=== PATIENT | female | born 1950 | race Caucasian/White ===

== ENCOUNTER 2016-04-29 10:00 | Day surgery (SDC) | payer MEDICARE, MEDICAID ==
[~2016-04-29] VITALS: Ht 170.2 cm; Wt 152.0 kg
[~2016-04-29 10:00] MED LIST: CELEBREX200 MG PO; COMBIVENT RESPIM4 GM INH; HUMULIN R100 U/ML SC; HYDROCODONE-APA1 TAB PO; IBUPROFEN200 MG PO; K-TAB10 MEQ PO; LANTUS INSULIN10 ML SC; LASIX40 MG PO; SYMBICORT 16010.2 GM INH
[2016-04-29 11:35] LABS: HEMATOCRIT 49.8 % (36.0-48.0); HEMOGLOBIN 16.6 g/dL (12-16); MCH 32.2 pg (26.0-34.0); MCHC 33.3 g/dL (31.0-37.0); MCV 96.7 fL (80.0-100.0); MEAN PLATELET VOLUME 10.9 fL (7.4-10.4); RBC 5.15 10x6/uL (4.00-5.40); RDW 14.1 % (11.5-14.5); WBC 10.6 10x3/uL (4.8-10.8)
[2016-04-29 11:56] LABS: CARBON DIOXIDE 32.8 mmol/L (21.0-32.0); CREATININE - SERUM 1.2 mg/dL (0.6-1.3); POTASSIUM - SERUM 4.8 mmol/L (3.5-5.1)
[2016-04-29 12:11] VITALS: Ht 170.2 cm; Wt 152.0 kg
[2016-04-29] MEDS ORDERED: PERCOCET 10/3251 TA1 PO (14:07)
--- NOTE | 2016-04-29 15:13 | NUR ---
1505 ADA FL DIET SERVED
--- NOTE | 2016-05-13 18:23 | OP ---
PATIENT NAME: CARYN CHRISTINA MEDICAL RECORD: [id number] :50 LOCATION:D.OPS ADMISSION DATE: SURGEON: MAN ARITA MD DATE OF OPERATION: 04/29/2016 Orthopedic Surgery Operative Note PREOPERATIVE DIAGNOSIS: De Quervain stenosing tenosynovitis of the left wrist. POSTOPERATIVE DIAGNOSIS: De Quervain stenosing tenosynovitis of the left wrist. PROCEDURE: Release of De Quervain stenosing tenosynovitis. SURGEON: Man Arita MD. ANESTHESIA: General. INTRAOPERATIVE COMPLICATIONS: None. SUMMARY OF PATHOLOGIC FINDINGS: The patient had very tight wrist retinaculum consistent with the diagnosis of substantive synovitis. OPERATIVE SUMMARY IN DETAIL: After obtaining the appropriate preoperative consents as well as anesthetic consultation, evaluation and clearance, the patient was brought to the operating room and placed on the operating table in supine position. After the regional anesthesia was tested, the left upper extremity was prepped and draped in a routine sterile fashion with a tourniquet about the proximal aspect. The arm was elevated, exsanguinated and tourniquet was inflated to 250 mmHg. An incision was made just dorsal to the radial tuberosity taken down to the level of the extensor compartment, which was incised revealing the extensor pollicis longus and substantial amount of tendinitis and synovitis. Synovitis was gently teased away. The wound was irrigated and closed with 4-0 Prolene in running fashion. Sterile dressings were applied. Tourniquet was deflated. The patient was awakened, taken to recovery in stable condition. All final needle and sponge counts were correct. TRANSINT:[id number] Voice Confirmation ID: [id number] DOCUMENT ID: [id number] MAN ARITA MD at 1823 CC: [id number] DICTATION DATE: 04/29/16 1405 [employer] MANUFACTURING TECH: 04/29/16 1534 [facility] 04/29/16 [id number] [place] [address]
== END 2016-04-29 16:05 | disposition home or self-care (01) ==
LOC: D.OPS 10:00
PROVIDERS: Anesthesiology
DX: M65.4 Radial styloid tenosynovitis [de Quervain] (principal)

== ENCOUNTER 2016-04-30 06:53 | Inpatient (IN) | payer MEDICARE, MEDICAID ==
[~2016-04-30] VITALS: Ht 170.2 cm; Wt 143.3 kg
[~2016-04-30 06:53] MED LIST changes: +PERCOCET 10/3251 TA1 PO
[2016-04-30 09:00] LABS: BASOPHILS 0.3 % (0.0-2.0); EOSINOPHILS 1.8 % (0-7); HEMOGLOBIN 14.9 g/dL (12-16); IMMATURE GRANULOCYTES 0.7 % (0-5); LYMPHOCYTES 11.3 % (15-50); MCH 31.5 pg (26.0-34.0); MCHC 32.4 g/dL (31.0-37.0); MCV 97.3 fL (80.0-100.0); MEAN PLATELET VOLUME 10.3 fL (7.4-10.4); MONOCYTES 10.8 % (2-11); NEUTROPHILS 75.1 % (40-80); PLATELET COUNT 145 10x3/uL (130-400); RBC 4.73 10x6/uL (4.00-5.40); RDW 14.3 % (11.5-14.5); WBC 8.9 10x3/uL (4.8-10.8)
[2016-04-30 09:09] LABS: ANION GAP 8.2 mmol/L (8-16); CALCIUM 9.3 mg/dL (8.5-10.1); CARBON DIOXIDE 32.2 mmol/L (21.0-32.0); POTASSIUM - SERUM 5.4 mmol/L (3.5-5.1)
--- NOTE | 2016-04-30 15:00 | NUR ---
RECD TO ROOM 2216 VIA CART FROM S/O ON 3L N/C SOME SOB NOTED AT PRESENT.IV CONT TO RTDH AT 75CC/HR/IVAC.LEFT ARM STILL NUMB FROM TENDON REPAIR ON YESTERDAY VIA DR.RUDDER SERRANO AND SLING IN PLACE FINGERS WARM AND DRY WITH GOOD CAP REFILL AT PRESENT.PLAN OF CARE GONE OVER WITH PT AND FAMILY DEMONSTRATES UNDERSTANDING.
[2016-04-30 15:20] LABS: ALBUMIN 3.3 g/dL (3.4-5.0); BILIRUBIN - DIRECT 0.16 mg/dL (0.00-0.30); BILIRUBIN - INDIRECT 0.26 mg/dL (0.00-1.00); BILIRUBIN - TOTAL 0.42 mg/dL (0.2-1.3); PROTEIN - SERUM 6.8 g/dL (6.4-8.2)
[2016-04-30 16:17] VITALS: BP 108/88; BP 126/66; BMI 52.6
--- NOTE | 2016-04-30 17:09 | NUR ---
SLEEPING QUIETLY AT PRESENT DENIES ANY NEEDS AT PRESENT FAMILY AT BEDSIDE AT PRESENT.IV CONT AT 75CC/HR/RT HAND SITE CLEAN AND DRY VOIDING FREELY ON BEDPAN AT PRESENT.
--- NOTE | 2016-04-30 17:30 | NUR ---
CONT MULTIPLE OLD SCABS OVER BODY AT PRESENT.
--- NOTE | 2016-04-30 19:32 | NUR ---
Patient received in bed, alert and oriented x 4, having difficulty getting positioned into a comfortable position. Patient is very obese, encouraged to participate with staff assist but became very irritable. Making gasping noises forced with her mouth open, Oxygen on @3L/min, lung sounds slightly diminished, no wheezing heard. HOB elevated, respirations adequate, color normal fleshtone, skin warm and dry. PIV #22 in back of right hand infusing NS @75ml/hr. MAGGIE tensor wrap on left wrist intact and secure, left arm sling on. No complaints of pain at this time, complaining that she wants a dooley catheter in. Educated to importance of participating in her treatment and staying as active as she can to promote optimal well being for returning home upon discharge.
--- NOTE | 2016-04-30 21:30 | NUR ---
BG check done = 360. Given 10 Units regular insulin per sliding scale and routine dose of Lantus 70 Units. Patient states that her BG usually runs in the low 100s but because she is in the hospital and "they shove medications at me my blood sugar always goes up." Assisted up to commode with two staff. Initially patient was oppositional and did not want to participate stating she needed a catheter as she could not help herself. Did stand with assist and take a few steps.
[2016-04-30 22:00] VITALS: BP 95/55
--- NOTE | 2016-05-01 00:58 | NUR ---
Given King 10-325mg one tab for complaints of pain 10/10 in her back and right hand. Patient's right hand slightly swollen, checked PIV site, unable to flush, no blood return. Turned off IV pump and reported same to Charge Nurse. Charge Nurse reassessed and also was unable to flush and get blood return. PIV removed, catheter tip intact, pressure held over site and gauze dressing applied.
--- NOTE | 2016-05-01 01:30 | NUR ---
Attempted x 1 to restart PIV, got flash but vein blew when attempting to thread cannula. Charge Nurse attempted x 2, unsuccessful. Called ICU to see if an RN there could attempt to restart PIV.
--- NOTE | 2016-05-01 04:02 | NUR ---
PIV restarted in underside of Right Forearm with #20, NS restarted @50ml/hr as per orders. Patient made aware of being NPO now at [address] scan with contrast in the morning, clarified with radiology that patient needs to be NPO for at least four hours prior to procedure. Patient is not happy but with explanation did accept same.
[2016-05-01 06:14] LABS: BASOPHILS 0 % (0.0-2.0); EOSINOPHILS 0 % (0-7); HEMATOCRIT 46.6 % (36.0-48.0); HEMOGLOBIN 14.9 g/dL (12-16); IMMATURE GRANULOCYTES 0.6 % (0-5); LYMPHOCYTES 3.7 % (15-50); MCH 31.1 pg (26.0-34.0); MCV 97.3 fL (80.0-100.0); MEAN PLATELET VOLUME 10.8 fL (7.4-10.4); MONOCYTES 2.1 % (2-11); NEUTROPHILS 93.6 % (40-80); PLATELET COUNT 153 10x3/uL (130-400); RBC 4.79 10x6/uL (4.00-5.40); RDW 13.8 % (11.5-14.5); WBC 10.3 10x3/uL (4.8-10.8)
[2016-05-01 06:49] LABS: ANION GAP 11.3 mmol/L (8-16); CALCIUM 8.6 mg/dL (8.5-10.1); CARBON DIOXIDE 29.8 mmol/L (21.0-32.0); CREATININE - SERUM 1.1 mg/dL (0.6-1.3); POTASSIUM - SERUM 5.1 mmol/L (3.5-5.1)
--- NOTE | 2016-05-01 07:30 | NUR ---
REPORT RECEIVED FROM ADMINISTRATION PROFESSIONAL NURSE. CALL LIGHT IN REACH.
--- NOTE | 2016-05-01 07:55 | NUR ---
Patient has been up to bedside commode numerous times with two person assist, was up to bedside commode with one person assist the last two times and did pull self up in bed 8 inches on her own using her right arm and digging her heels into the bed, despite repeated complaints that she could not do so. PIV remains in place infusing NS, now @50mls/hr. Reminded several times she is NPO.
--- NOTE | 2016-05-01 08:16 | NUR ---
DES FROM CT SAID THAT PATIENT WANTED SOMETHING FOR PAIN BEFORE SHE WENT FOR HER CT SCAN. AFTER PLACING BOTH PILLS IN CUP, PATIENT STATES 2 IS TOO MANY FOR HER TO TAKE AT ONE TIME. I CALLED ARIANNA, NURSE NEWS AGENT IN ROOM TO WATCH ME WASTE IT IN THE SHARPS. TO CT VIA BED.
--- NOTE | 2016-05-01 08:40 | NUR ---
BACK IN ROOM. TRAY TAKEN TO PATIENT AND ALL BEVERAGES OPEN AND JELLY SPREAD ON TOAST FOR HER. COFFEE MADE FOR PATIENT.
--- NOTE | 2016-05-01 10:12 | NUR ---
ASSESSMENT COMPLETED. AM MEDS ADMINISTERED. PATIENT IS C/O NEEDING SOMEONE TO PULL HER STRAIGHT UP IN THE BED SO THAT SHE CAN TAKE HER MEDS. PATIENT SAYS THAT SHE CANNOT DO IT ON HER ALTHOUGH SHE RAISED UP IN BED ON HER OWN. CALL LIGHT IN REACH.
--- NOTE | 2016-05-01 12:05 | NUR ---
RESTING WITH EYES CLOSED. RESP EVEN AND UNLABORED. CALL LIGHT IN REACH.
[2016-05-01 13:07] VITALS: BP 183/83
[2016-05-01 13:31] VITALS: Ht 170.2 cm; Wt 143.3 kg
--- NOTE | 2016-05-01 14:45 | NUR ---
PATIENT RECIEVED NORCO FOR PAIN AT THIS TIME. STATED SHE ONLY WANTS ONE. THE OTHER IS WASTED. IV INTACT. BREATHING TREATMENT GOING AT THIS TIME. FAMILY AT BEDSIDE. CALL LIGHT WITHIN REACH.
[2016-05-01 15:50] VITALS: BP 128/56
--- NOTE | 2016-05-01 16:59 | NUR ---
Patient Name: CARYN CHRISTINA Admission Status: ER Accout number: [id number] Admission Date: 04-30-2016 : 1950 Admission Diagnosis: Attending: MARIELA Current LOS: 1 Anticipated DC Date: 05-03-2016 Planned Disposition: Home Primary Insurance: [facility] Discharge Planning Comments: CM MET WITH PATIENT REGARDING D/C NEEDS AND PLANS. PATIENT STATED SHE LIVES WITH HER SON AND DAUGHTER. PATIENT HAS NO STEPS OR STAIRS AT HER HOME. PAIENTS SON STATED HIS TRUCK IS TOO HIGH FOR HIS MOTHER TO GET IN FOR DISCHARGE. CM EXPLAINED THAT WE WOULD GET HER HOME IF HE COULD NOT. THAT WAS A BIG WORRY FOR THE PATIENT. PATIENT IS PARTIAL DEPENDENT WITH REC. HELP WITH HER BATH, DRESSING, AND MEDICATION MANAGEMENT. PATIENTS PCP IS DR. MOYA AND PHARMACY IS [facility] ON [address]. SHE IS CURRENT WITH [facility]. PATIENT HAS A WHEELCHAIR, WALKER, BS COMMODE, NEBULIZER, AND PORTABLE O2 AT HOME. PATIENT AND FAMILY THINK OXYGEN IS SUPPLIED BY [facility]. CM WILL CONTINUE TO FOLLOW PATIENT WITH DISCHARGE NEEDS AND PLANS. PCP DR[facility] [address] [facility]- [phone] MEGHAN (SON) [phone] Coin Box Inspector: Teresa Staton Is the patient Alert and Oriented? Yes 0 * How many steps to enter\exit or inside your home? 0 0 * PCP DR. MOYA 0 * Pharmacy [facility] [address] [facility] 0 * Preadmission Environment Home with Family 0 * ADLs Partial Dependent 0 * Partial ADLs (Assistance needed) Bathing Dressing Medication Management Toileting Transfers 0 * Equipment Bedside Commode Nebulizer Oxygen Walker Wheelchair 0 * Other Equipment PORTABLE O2 0 * List name and contact numbers for known caregivers / representatives who currently or will assist patient after discharge: MEGHAN (SON) [phone] 0 * Community resources currently utilized Home Health 0 * Please name any agencies selected above. [facility] 0 * Additional services required to return to the preadmission environment? Yes 0 * Can the patient safely return to the preadmission environment? Yes 0 * Has this patient been hospitalized within the prior 30 days at any hospital? No 0 Grand Total: 0
--- NOTE | 2016-05-01 18:40 | NUR ---
NO CHANGES IN INITIAL ASSESSMENT. CALL LIGHT IN REACH. WILL CONTINUE WITH PLAN OF CARE.
--- NOTE | 2016-05-01 20:00 | NUR ---
ASSESSMENT PER FLOWSHEET. IV PATENT RT FOREARM WITH NS AT 50CC'S/HR. SITE CLEAR. PT SITTING UPRIGHT IN BED TAKING UPDRAFT BREATHING TREATMENT. TELM. SHOWS SR.
--- NOTE | 2016-05-01 21:46 | NUR ---
C/O PAIN NORCO 10 TAB ONE PO GIVEN FOR PAIN CONTROL PER GYPSY JANG LPN. PVWS=285 HUMALOG INSULIN 20 UNITS GIVEN PER S/S.
[2016-05-01 22:12] VITALS: BP 112/58
--- NOTE | 2016-05-01 23:41 | NUR ---
RESTING AT THIS TIME SR UP X2 CALL LIGHT WITHIN REACH.
[2016-05-02 01:00] VITALS: BP 153/78
--- NOTE | 2016-05-02 02:03 | NUR ---
PT SITITNG UP IN BED WATCHING TV. REQUESTED PAIN MEDICATIONS. NEXT DOSE AVAILABLE AT 03:45. PT VERBALIZES UNDERSTANDING BUT WOULD LIKE TO SEE IF DOCTOR WILL CHANGE PAIN MEDICATION TO EVERY 4 HOURS. PT AGREES TO WAIT UNTIL MORNING ROUNDS RATHER THAN CALL DR IN THE MIDDLE OF THE NIGHT.
--- NOTE | 2016-05-02 03:00 | NUR ---
PT UP TO BEDSIDE COMMODE UNASSISTED. REPORTS THAT SHE CAUGHT IV TUBING ON BEDSIDE TABLE AND PULLED IT OUT. IV CATH REMOVED, COMPLETELY ITACT. PRESSURE HELD UNTIL BLEEDING STOPPED. WILL ATTEMPT TO RE-SITE AFTER PT IS BATHED AND BACK IN BED.
--- NOTE | 2016-05-02 04:38 | NUR ---
ATTEMPTED TO RE-SITE IV TWICE. BOTH ATTEMPTS WERE UNSUCCESSFUL. PT IS NOT RECEIVING MEDICATION THROUGH IV UNTIL LATER IN THE MORNING. WILL WAIT FOR VASCULAR ACCESS NURSE TO ATTEMPT WHEN SHE COMES IN THIS MORNING.
--- NOTE | 2016-05-02 05:27 | NUR ---
PT RESTING QUIETLY, REFUSES TO SLEEP WITH BI-PAP ON. NC IN USE INSTEAD. DENIES ANY NEEDS AT THIS TIME. CALL LIGHT IN REACH, BED IN LOWEST POSITON. WILL CONTINUE TO MONITOR.
[2016-05-02 06:42] LABS: BASOPHILS 0.1 % (0.0-2.0); EOSINOPHILS 0 % (0-7); HEMATOCRIT 45.8 % (36.0-48.0); HEMOGLOBIN 14.8 g/dL (12-16); IMMATURE GRANULOCYTES 0.3 % (0-5); LYMPHOCYTES 2.8 % (15-50); MCH 31.3 pg (26.0-34.0); MCHC 32.3 g/dL (31.0-37.0); MCV 96.8 fL (80.0-100.0); MEAN PLATELET VOLUME 10.9 fL (7.4-10.4); MONOCYTES 3.8 % (2-11); PLATELET COUNT 159 10x3/uL (130-400); RBC 4.73 10x6/uL (4.00-5.40); RDW 13.7 % (11.5-14.5); WBC 14.4 10x3/uL (4.8-10.8)
--- NOTE | 2016-05-02 06:44 | NUR ---
PT RESTING QUIETLY, DENIES ANY NEEDS AT THIS TIME. CALL LIGHT IN REACH, BED IN LOWEST POSITION.
[2016-05-02 06:47] LABS: CARBON DIOXIDE 33.2 mmol/L (21.0-32.0); CREATININE - SERUM 1.1 mg/dL (0.6-1.3); POTASSIUM - SERUM 5.2 mmol/L (3.5-5.1)
[2016-05-02 07:26] LABS: IMMUNOGLOBULIN A 384 mg/dL (87-352); IMMUNOGLOBULIN G 989 mg/dL (700-1600)
--- NOTE | 2016-05-02 07:30 | NUR ---
REPORT RECEIVED FROM SEAFOOD HARVESTER NURSE. CALL LIGHT IN REACH.
--- NOTE | 2016-05-02 08:00 | NUR ---
RESPIRATORY THERAPY IN ROOM DOING BREATHING TREATMENTS.
[2016-05-02 08:08] VITALS: BP 101/68
[2016-05-02 09:19] LABS: IMMUNOGLOBULIN E 1656 IU/mL (0-100)
--- NOTE | 2016-05-02 10:20 | NUR ---
ASSESSMENT COMPLETED. CALL LIGHT IN REACH. WILL CONTINUE WITH PLAN OF CARE.
--- NOTE | 2016-05-02 10:34 | NUR ---
PATIENT IN RIGHT LATERAL POSITION RESTING WITH EYES CLOSED. RESPIRATIONS EVEN AND UNLABORED. SIDE RAILS UP X2. BED IN LOW POSITION. CALL LIGHT IN REACH.
--- NOTE | 2016-05-02 12:21 | NUR ---
NUTRITION MONITORING & EVAL ADDED TEA AND COFFEE WITH EXTRA SWEETENER AND CREAMER TO PT DIET ORDER. RD FOLLOWING
--- NOTE | 2016-05-02 12:23 | NUR ---
CASSIECO PO WITH AM MEDS ADMINISTERED. FSBS 444. NOTIFIED DR. MEDEROS. STATED TO GIVE SLIDING SCALE. CALL LIGHT IN REACH.
[2016-05-02 12:31] VITALS: BP 90/59
--- NOTE | 2016-05-02 14:40 | NUR ---
FAMILY IN ROOM. NO NEEDS VOICED.
--- NOTE | 2016-05-02 15:30 | NUR ---
WATCHING TV. DENIES NEEDS. FAMILY IN ROOM. CALL LIGHT IN REACH.
--- NOTE | 2016-05-02 17:54 | NUR ---
FSBS 240. HUMALOG SUBQ TO RIGHT ARM. ERA BOSS. CALL LIGHT IN REACH.
--- NOTE | 2016-05-02 18:30 | NUR ---
NO CHANGES IN INITIAL ASSESSMENT. REFUSES SCDs. CALL LIGHT IN REACH. WILL CONTINUE WITH PLAN OF CARE.
--- NOTE | 2016-05-02 19:30 | NUR ---
RESIDENT RESTING IN BED WATCHING TV. NO S/S OF DISTRESS AT THIS TIME. BED IN LOWEST POSITION, CALL LIGHT IN REACH. ASSESSMENT PER FLOWSHEET.
--- NOTE | 2016-05-02 20:50 | NUR ---
PT UP TO BSC WITHOUT ASSISTANCE AND BACK TO THE BED. REFUSED FURTHER AMBULATION. REQUEST A SALAD WITH LIGHT DRESSING AND CROUTONS. WAS PROVIDED A SANDWICH AN ALTERNATIVE. PT DENIES ANY NEEDS OTHERWISE. BED IN LOWEST POSITION, CALL LIGHT IN REACH, WILL CONTINUE TO MONITOR.
[2016-05-02 21:00] VITALS: BP 161/84
--- NOTE | 2016-05-02 23:42 | NUR ---
PT UP TO [facility], INITIALLY REQUESTED BEDPAN AND REFUSED TO GET OUT OF BED. NURSE REMINDED PT OF PHYSICAL THERAPY GOALS AND HER NEED TO AMBULATE OFTEN AND PERFORM ADLs INDEPENDENTLY. EVENTUALLY, PT VERBALIZED UNDERSTANDING BUT REQUESTED NURSE TO STAY CLOSE IN THE EVENT THAT SHE FELL. NURSE REMAINED AT BEDSIDE UNTIL PT GOT BACK INTO BED. CALL LIGHT IN REACH, BED IN LOWEST POSITION. WILL CONTINUE TO MONITOR.
--- NOTE | 2016-05-03 00:52 | NUR ---
RESTING QUIETLY RESPIRATIONS WITH EASE AND UNLABORED.SR UP X2 CALL LIGHT WITHIN REACH.
--- NOTE | 2016-05-03 04:58 | NUR ---
UP TO BSC AND BACK TO BED WITH OUT ASSIST. DENIES ANY NEEDS AT THIS TIME. CALL LIGHT IN REACH, BED IN LOWEST POSITION.
[2016-05-03 05:04] VITALS: BP 183/75
[2016-05-03 06:47] LABS: BASOPHILS 0.1 % (0.0-2.0); EOSINOPHILS 0 % (0-7); HEMATOCRIT 46.2 % (36.0-48.0); HEMOGLOBIN 14.7 g/dL (12-16); IMMATURE GRANULOCYTES 0.4 % (0-5); LYMPHOCYTES 2.8 % (15-50); MCHC 31.8 g/dL (31.0-37.0); MCV 97.5 fL (80.0-100.0); MEAN PLATELET VOLUME 11.1 fL (7.4-10.4); MONOCYTES 5.3 % (2-11); NEUTROPHILS 91.4 % (40-80); PLATELET COUNT 153 10x3/uL (130-400); RBC 4.74 10x6/uL (4.00-5.40); RDW 13.6 % (11.5-14.5)
[2016-05-03 07:10] LABS: ANION GAP 8.8 mmol/L (8-16); CALCIUM 8.6 mg/dL (8.5-10.1); CARBON DIOXIDE 33.1 mmol/L (21.0-32.0); MAGNESIUM - SERUM 2.1 mg/dL (1.8-2.4); PHOSPHOROUS 2.9 mg/dL (2.5-4.9); POTASSIUM - SERUM 4.9 mmol/L (3.5-5.1)
--- NOTE | 2016-05-03 07:50 | NUR ---
AWAKE ALERT COLOR ADQ SKIN WARM AND DRY AT PRESENT DENIES AT PRESENT.
[2016-05-03 08:32] VITALS: BP 141/72
--- NOTE | 2016-05-03 09:00 | NUR ---
MEDS GIVEN WILLIAM WELL AT PRESENT DENIES ANY NEEDS.
[2016-05-03 10:26] LABS: HEMOGLOBIN A1C 9.3 % (4.8-6.0)
--- NOTE | 2016-05-03 11:00 | NUR ---
WATCHING TV QUIETLY AT PRESENT N/C VOICED.
[2016-05-03 11:50] VITALS: BP 173/92
--- NOTE | 2016-05-03 13:45 | NUR ---
CONT SITTING UP IN BED AT PRESENT.
--- NOTE | 2016-05-03 15:12 | NUR ---
DISCHARGE INSTRUCTIONS GONE OVER WITH PT DEMONSTRATES UNDERSTANDING AT PRESENT IV DCD CATH INTACT DEMONSTRATES UNDERSTANDING AT PRESENT.
--- NOTE | 2016-05-03 16:04 | NUR ---
QUIET IN ROOM N/C VOICED AT PRESENT.
[2016-05-03 16:17] VITALS: BP 148/95
--- NOTE | 2016-05-03 17:01 | NUR ---
STATUS REMAINS UNCHGD AT PRESENT.
[2016-05-03 20:19] VITALS: BP 137/80
--- NOTE | 2016-05-03 20:43 | NUR ---
PT IS A&OX4. PT WEARING O2@2 AND NS RUNNING@50. FAMILY AT BEDSIDE. PT DENIES NEEDS AT THIS TIME. BED LOW. CL IN REACH.
--- NOTE | 2016-05-04 01:57 | NUR ---
PATIENT GIVEN A HOT PACK FOR REPORTED LOWER BACK PAIN. PAIN MEDICATION NO AVALIBLE UNTIL 3:30AM.
[2016-05-04 05:23] LABS: BASOPHILS 0.1 % (0.0-2.0); EOSINOPHILS 0 % (0-7); HEMATOCRIT 49.6 % (36.0-48.0); HEMOGLOBIN 15.9 g/dL (12-16); IMMATURE GRANULOCYTES 0.5 % (0-5); LYMPHOCYTES 5.4 % (15-50); MCH 31.2 pg (26.0-34.0); MCHC 32.1 g/dL (31.0-37.0); MCV 97.4 fL (80.0-100.0); MEAN PLATELET VOLUME 10.7 fL (7.4-10.4); PLATELET COUNT 149 10x3/uL (130-400); RBC 5.09 10x6/uL (4.00-5.40); RDW 13.5 % (11.5-14.5); WBC 12.6 10x3/uL (4.8-10.8)
[2016-05-04 05:26] LABS: ANION GAP 7.1 mmol/L (8-16); CALCIUM 8.8 mg/dL (8.5-10.1); CARBON DIOXIDE 34.4 mmol/L (21.0-32.0); POTASSIUM - SERUM 4.5 mmol/L (3.5-5.1)
[2016-05-04 10:06] VITALS: BP 155/90
--- NOTE | 2016-05-04 12:14 | NUR ---
AWAKE FROM NAP.ASSIST WITH BSC,PT VOIDED 350CC OF CLEAR YELLOW URINE.FSBS PER MAR.CALL LIGHT IN REACH
--- NOTE | 2016-05-04 14:24 | NUR ---
OFF UNIT WITH FAMILY.DR MEDEROS AWARE.
--- NOTE | 2016-05-04 16:48 | NUR ---
CHA PER STEPHANY PER PT REQUEST.
--- NOTE | 2016-05-04 18:22 | NUR ---
REMAINS WITHOUT NEEDS,WITHOUT CHANGE.CONT PLAN OF CARE
[2016-05-04 18:48] VITALS: BP 117/69
[2016-05-04 20:00] VITALS: BP 109/66
--- NOTE | 2016-05-04 20:15 | NUR ---
ASSESSMENT COMPLETED, NO ACUTE DISTRESS NOTED, SR'S UP , CL IN REACH, WILL MONITOR
--- NOTE | 2016-05-04 21:33 | NUR ---
MEDS GIVEN PER MAR, WILLIAM WELL, DENIES NEEDS, CL IN REACH
--- NOTE | 2016-05-04 22:33 | NUR ---
SITTING UP IN BED WATCHING TV, PRN PAIN MEDS GIVEN FOR C/O BACK PAIN 01/21, WILLIAM WELL, CL IN REACH
--- NOTE | 2016-05-05 01:15 | NUR ---
RESTING WITH EYES CLOSED, NC IN PLACE, NO DISTRESS NOTED, SR'S UP X2, CL IN REACH
--- NOTE | 2016-05-05 03:25 | NUR ---
RESTING WITH EYES CLOSED, RESP WITH EASE, NO DISTRESS NOTED, CL IN REACH
[2016-05-05 05:34] LABS: BASOPHILS 0.1 % (0.0-2.0); EOSINOPHILS 0.1 % (0-7); HEMATOCRIT 50.5 % (36.0-48.0); HEMOGLOBIN 16.3 g/dL (12-16); IMMATURE GRANULOCYTES 0.6 % (0-5); LYMPHOCYTES 9.4 % (15-50); MCH 31.1 pg (26.0-34.0); MCHC 32.3 g/dL (31.0-37.0); MCV 96.4 fL (80.0-100.0); MONOCYTES 3.2 % (2-11); NEUTROPHILS 86.6 % (40-80); PLATELET COUNT 154 10x3/uL (130-400); RBC 5.24 10x6/uL (4.00-5.40); RDW 13.4 % (11.5-14.5)
[2016-05-05 05:44] LABS: WBC 15.9 10x3/uL (4.8-10.8)
[2016-05-05 05:50] VITALS: BP 162/92
[2016-05-05 05:53] LABS: ANION GAP 8.9 mmol/L (8-16); CALCIUM 8.4 mg/dL (8.5-10.1); CARBON DIOXIDE 33.4 mmol/L (21.0-32.0); CREATININE - SERUM 0.9 mg/dL (0.6-1.3); POTASSIUM - SERUM 4.3 mmol/L (3.5-5.1)
--- NOTE | 2016-05-05 07:30 | NUR ---
RECIEVED PT DURING WALKING ROUNDS. PT SITTING UP IN BED WITH NO COMPLAINTS OF PAIN AT THIS TIME. PT REQUESTED CHICKEN BROTH TO HELP WARM HER BECAUSE SHE WAS UNABLE TO WARM UP. PT HAS NO TEMP AT THIS TIME. ASSESSMENT DONE PER FLOWSHEET. BED IN LOW POSITION AND CALL LIGHT WITHIN REACH. WILL CONTINUE TO MONITOR.
[2016-05-05 07:53] VITALS: BP 151/102
--- NOTE | 2016-05-05 09:34 | NUR ---
WITHOUT DISTRESS.SITTING UP IN BED.CALL LIGHT IN REACH
--- NOTE | 2016-05-05 09:50 | NUR ---
HELPED PT FROM BEDSIDE COMMODE TO BED WITH STAND BY ASSIST. NO REDNESS OR BREAKDOWN NOTED ON BOTTOM. BED IN LOW POSITION AND CALL LIGHT WITHIN REACH. WILL CONTINUE TO MONITOR.
[2016-05-05 11:34] VITALS: BP 115/64
[2016-05-05] MEDS ORDERED: IPRAT-ALBUT 0.5-3 ML UPD (11:58)
[2016-05-05] MEDS ORDERED: SINGULAIR10 MG PO (11:59)
[2016-05-05] MEDS ORDERED: BENZONATATE200 MG PO (11:59)
[2016-05-05] MEDS ORDERED: MUCINEX DM ER1 EAC1 PO (11:59)
[2016-05-05] MEDS ORDERED: FLUTICASONE PRO16 GM NASAL (12:00)
[2016-05-05] MEDS ORDERED: LANTUS INSULIN10 ML SC (12:01)
[2016-05-05] MEDS ORDERED: PREDNISONE20 MG PO (12:01)
[2016-05-05] MEDS ORDERED: LEVAQUIN750 MG PO (12:07)
[2016-05-05] MEDS ORDERED: HUMALOG 30100 UNITS/ SC (12:10)
--- NOTE | 2016-05-05 14:34 | NUR ---
PT AWAITING DISCHARGE AT THIS TIME. HAD DEMANDED TO BE DISCHARGED AFTER BEING TOLD NUMEROUS TIMES SHE MUST WAIT FOR EQUIPMENT THAT WAS NEEDED AND REQUESTED BY PT. AWAITING ARRIVAL OF EQUIPMENT. BED IN LOW POSITION AND CALL LIGHT WITHIN REACH. WILL CONTINUE TO MONITOR.
--- NOTE | 2016-05-05 15:04 | NUR ---
1000 CM received notification this AM that patient was being discharged and needed a new nebulizer. CM spoke w/ DR Randolph. Reviewed the MD orders. CM spoke with the patient in her room. The patient advised she was having difficulty w/ her nebulizer. She also wanted a shower bench w/ a handle and w/ holes in the set. Patient denied any additional needs. TC to [facility] her DME provider. Received CB from the on-call, Jareth. Discussed the request. CM faxed MD orders, face sheet and clinical for review / billing. Patient had been scheduled to have [facility] start prior to admission. CM telephoned [facility]. Unable to s/w anyone. Will have to call in the AM to advise of discharge to home. 1345 CM received telephone call from primary nurse. Patient states she does not have any portable oxygen. She denied any other needs this AM. All of her portable tanks are empty. TC back to [facility]. S/W the answering service. Message given to Jareth. He will be on the way to hospital w/ portable oxygen as patient's tanks are empty. Patient also requesting wedges. Advised patient I would speak w/ someone on Friday as set key driver could not assist w/ this need. VIVIANE spoke with primary nurse, Tammi.
[2016-05-05 15:22] VITALS: BP 127/78
--- NOTE | 2016-05-05 15:54 | NUR ---
MIDLINE CATH REMOVED FROM RIGHT ARM AT THIS TIME. CATH INTACT AT 17CM LONG. PRESSURE APPLIED TO SITE. EQUIPMENT GIVENN BY PROVIDER. PT REFUSED NEBULIZER DUE TO COST. DISCAHRGE INSTRUCTIONS GIVEN AND PT DISCHARGED VIA WHEELCHAIR TO HOME WITH FAMILY MEMBER.
== END 2016-05-05 16:02 | disposition home or self-care (01) | DRG 190 ==
LOC: D.ER 06:53 → D.MS 12:05
PROVIDERS: Emergency Medicine; Family Medicine; Internal Medicine Pulmonary Disease; ADMIT Family Medicine
PROC: 05HD33Z Insertion of Infusion Device into Right Cephalic Vein, Percutaneous Approach (ICD-10-PCS; principal; 2016-05-02)
PROC: B54MZZA Ultrasonography of Right Upper Extremity Veins, Guidance (ICD-10-PCS; 2016-05-02)
DX: J44.0 Chronic obstructive pulmonary disease with (acute) lower respiratory infection (principal); J15.6 Pneumonia due to other Gram-negative bacteria; J45.901 Unspecified asthma with (acute) exacerbation; J98.11 Atelectasis; F17.203 Nicotine dependence unspecified, with withdrawal; Z68.43 Body mass index [BMI] 50.0-59.9, adult; E66.2 Morbid (severe) obesity with alveolar hypoventilation; J44.1 Chronic obstructive pulmonary disease with (acute) exacerbation; Z91.19 Patient's noncompliance with other medical treatment and regimen; Y95 Nosocomial condition; E11.65 Type 2 diabetes mellitus with hyperglycemia; Z79.4 Long term (current) use of insulin; K59.09 Other constipation; E87.5 Hyperkalemia; G47.33 Obstructive sleep apnea (adult) (pediatric); I27.2 Other secondary pulmonary hypertension

== ENCOUNTER 2016-06-03 16:54 | Inpatient (IN) | payer MEDICARE, MEDICAID ==
[~2016-06-03] VITALS: Ht 170.2 cm; Wt 156.4 kg
[~2016-06-03 16:54] MED LIST changes: +BENZONATATE200 MG PO; +FLUTICASONE PRO16 GM NASAL; +HUMALOG 30100 UNITS/ SC; +IPRAT-ALBUT 0.5-3 ML UPD; +LEVAQUIN750 MG PO; +MUCINEX DM ER1 EAC1 PO; +PREDNISONE20 MG PO; +SINGULAIR10 MG PO
[2016-06-03] MEDS ORDERED: LANTUS INSULIN10 ML SQ (17:33)
[2016-06-03 17:44] VITALS: BP 149/134; BMI 51.8
[2016-06-03 18:00] LABS: BASOPHILS 0.4 % (0.0-2.0); EOSINOPHILS 1.8 % (0-7); HEMATOCRIT 46.8 % (36.0-48.0); HEMOGLOBIN 15.1 g/dL (12-16); IMMATURE GRANULOCYTES 1.7 % (0-5); LYMPHOCYTES 16.2 % (15-50); MCH 31.3 pg (26.0-34.0); MCHC 32.3 g/dL (31.0-37.0); MCV 97.1 fL (80.0-100.0); MEAN PLATELET VOLUME 10.8 fL (7.4-10.4); MONOCYTES 8.5 % (2-11); NEUTROPHILS 71.4 % (40-80); PLATELET COUNT 137 10x3/uL (130-400); RBC 4.82 10x6/uL (4.00-5.40); RDW 14.3 % (11.5-14.5); WBC 11.3 10x3/uL (4.8-10.8)
--- NOTE | 2016-06-03 18:18 | NUR ---
ARRIVED FROM DOCTORS OFFICE VIA WC. ASSESSMENT DONE. 4+ EDEMA ROSA ISELA LE. PATIENT WAS SO BUSY EATING IT WAS HARD TO DO ASSESSMENT. PATIENT ATE 2 TRAYS. IV STARTED IN R BREAST ON 2ND ATTEMPT. WILL CONTINUE TO MONITOR.
[2016-06-03 19:06] LABS: ALBUMIN 3.5 g/dL (3.4-5.0); ANION GAP 11.1 mmol/L (8-16); BILIRUBIN - TOTAL 0.69 mg/dL (0.2-1.3); CALCIUM 9.3 mg/dL (8.5-10.1); CARBON DIOXIDE 37.7 mmol/L (21.0-32.0); POTASSIUM - SERUM 3.8 mmol/L (3.5-5.1); PROTEIN - SERUM 6.8 g/dL (6.4-8.2)
[2016-06-03 20:00] VITALS: BP 135/73
[2016-06-04] VITALS: BP 105/71
[2016-06-04 04:00] VITALS: BP 123/78
[2016-06-04 07:32] VITALS: BP 85/50
--- NOTE | 2016-06-04 07:51 | NUR ---
AM ROUNDING- PT IS SITTING UP IN BED WITH EYES OPEN. REDNESS SEEN TO RIGHT LEG. FSBS ACHS, 289 THIS AM THAT WAS COVERED BY CLERK SUPERVISOR NURSE ROHIT. IV SEEN TO RIGHT BREAST AREA THAT IS CURRENTLY SALINE LOCKED. ON 02 AT 2L VIA NC. BEDSIDE COMMODE SEEN. ON MONITOR SHOWING CONTROLLED A-FIB, HR 87. NO NEED AT CURRENT TIME. WILL CONTINUE TO MONITOR. WILL AWAIT DOCTOR TO MAKE ROUND AND NOTIFY HIM OF PTS HEART RHYTHM.
[2016-06-04 11:34] VITALS: BP 133/71
[2016-06-04 12:52] VITALS: Ht 170.2 cm; Wt 156.4 kg
--- NOTE | 2016-06-04 13:20 | NUR ---
ASKED PT IF SHE HAS HAD A BATH OR SHOWER TODAY AND SHE STATED NO. I ASKED HER IF SHE WOULD LIKE ONE AND PT STATED " NO NOT RIGHT NOW ". PT HAS A STRONG ODOR TO HER. INFORMED ADAM PANTOJA, MANAGED CARE LIAISON. REYNALDO LAWSON, STATED THAT PT REFUSED A SHOWER/BATH THIS MORNING AND WHEN RECENTLY ASKED PT STATED SHE IS GOING TO TAKE A "CAT NAP" AND WILL WASH UP AFTER IN BED.
[2016-06-04 15:13] LABS: CKMB 1.6 U/L (0.0-3.6); CREATINE KINASE 47 UL (21-215)
[2016-06-04 15:20] LABS: TROPONIN-I < 0.017 ng/mL (0.000-0.060)
[2016-06-04 15:33] VITALS: BP 125/56
--- NOTE | 2016-06-04 15:38 | NUR ---
EKG DONE ORDERED AND PLACED IN CHART.
--- NOTE | 2016-06-04 18:02 | NUR ---
PT SITTING UP IN BED WITH EYES OPEN. SON IS AT BEDSIDE. NO NEED AT CURRENT TIME. WILL CONTINUE TO MONITOR.
[2016-06-04 20:00] VITALS: BP 133/67
[2016-06-04 20:28] LABS: CKMB 1.7 U/L (0.0-3.6); CREATINE KINASE 55 UL (21-215)
[2016-06-04 20:37] LABS: TROPONIN-I < 0.017 ng/mL (0.000-0.060)
--- NOTE | 2016-06-04 21:03 | NUR ---
PT LYING IN BED ON HER RIGHT SIDE, EYES CLOSED, RESPIRATIONS EVEN AND UNLABORED. PT IS EASILY ROUSABLE TO VERBAL STIMULI. DENIES ANY NEEDS. CONTINUE TO MONITOR CLOSELY.
--- NOTE | 2016-06-04 23:45 | NUR ---
PT PULLED OUT HER IV TO RT BREAST. YADI BETANCUR RN IN ER RESITED 20G TO RIGHT WRIST. CLEOCIN NOW INFUSING. CONTINUE TO MONITOR CLOSELY.
[2016-06-05] VITALS: BP 99/59
--- NOTE | 2016-06-05 02:18 | NUR ---
PT HAS PULLED OUT NEWLY SITED IV IN RIGHT WRIST DURING HER SLEEP. PT CALLED TO REPORT THIS, ASKED FOR CHICKEN NOODLE SOUP, WHICH SHE HAS HAD 2 AND 1 CHICKEN BROTH THIS SHIFT. PT ALSO ASKED FOR HER PRN NORCO. I WENT TO GIVE THE NORCO, AND PT WAS SITTING UP IN BED, EYES CLOSED, ROUSABLE TO VERBAL STIMULI WITH MINIMAL DIFFICULTY, SO I HAVE HELD PTS NORCO AT THIS TIME. WILL CONTINUE TO MONITOR CLOSELY.
--- NOTE | 2016-06-05 02:20 | NUR ---
PT DID RECEIVE A BED BATH AND LINEN CHANGE.
[2016-06-05 02:46] LABS: CKMB 1.3 U/L (0.0-3.6); CREATINE KINASE 41 UL (21-215); PRO BNP 588 pg/mL (0-125)
[2016-06-05 02:47] LABS: TROPONIN-I < 0.017 ng/mL (0.000-0.060)
[2016-06-05 04:00] VITALS: BP 100/66
--- NOTE | 2016-06-05 04:25 | NUR ---
PT HAS RECENTLY CALLED AGAIN FOR HER PRN PAIN MEDICATIONS, BUT WHEN I WENT IN TO GIVE, PT WAS SLEEPING AND DIFFICULT TO ROUSE WITH VERBAL STIMULI. I DID NOT GIVE PRN NORCO. PT REMAINS SITTING UP IN BED, EYES CLOSED, RESPIRATIONS EVEN AND UNLABORED. WILL CONTINUE TO MONITOR CLOSELY.
--- NOTE | 2016-06-05 05:54 | NUR ---
PT LYING ON HER RIGHT SIDE NOW, EYES CLOSED, RESPIRATIONS EVEN AND UNLABORED. CONTINUE TO MONITOR CLOSELY.
--- NOTE | 2016-06-05 07:34 | NUR ---
PT SITTING UP ON SIDE OF BED. DENIES NEEDS WILL CONT TO MONITOR.
[2016-06-05 07:43] VITALS: BP 109/63
--- NOTE | 2016-06-05 10:26 | NUR ---
Patient Name: CARYN CHRISTINA Admission Status: Urgent Accout number: [id number] Admission Date: 06-04-2016 : 1950 Admission Diagnosis: Attending: MARIELA Current LOS: 1 Anticipated DC Date: Planned Disposition: Home Primary Insurance: [facility] Discharge Planning Comments: CM ATTEMPTED TO MEET WITH PT FOR INITIAL ASSESSMENT OF DISCHARGE NEEDS. CM WOKE PT UP AT APPROXIMATELY 0925 HOURS. PT ASKED CM TO COME BACK LATER. CM TO ATTEMPT ASSESSMENT OF PT AT A LATER TIME. Heel Seat Flap Stapler: Max Gordillo
--- NOTE | 2016-06-05 10:56 | NUR ---
PAGED CARDIO TO SEE ABOUT CONSULT. TO MY KNOWLEDGE NO ONE SAW HER THIS AM
[2016-06-05 11:01] LABS: BASOPHILS 0.4 % (0.0-2.0); EOSINOPHILS 1.6 % (0-7); HEMATOCRIT 43.7 % (36.0-48.0); HEMOGLOBIN 13.8 g/dL (12-16); IMMATURE GRANULOCYTES 1.2 % (0-5); LYMPHOCYTES 17.5 % (15-50); MCH 31.2 pg (26.0-34.0); MCHC 31.6 g/dL (31.0-37.0); MCV 98.6 fL (80.0-100.0); MEAN PLATELET VOLUME 11.1 fL (7.4-10.4); MONOCYTES 9.3 % (2-11); PLATELET COUNT 134 10x3/uL (130-400); RBC 4.43 10x6/uL (4.00-5.40); RDW 14.6 % (11.5-14.5)
[2016-06-05 11:02] LABS: ANION GAP 8.6 mmol/L (8-16); CALCIUM 9.4 mg/dL (8.5-10.1); POTASSIUM - SERUM 3.6 mmol/L (3.5-5.1); WBC 8.3 10x3/uL (4.8-10.8)
[2016-06-05 11:17] VITALS: BP 122/65
--- NOTE | 2016-06-05 12:08 | NUR ---
PT BECAME VERY UPSET WITH NURSING STAFF WHEN WE TOLD HER THAT SHE COULD NOT GO OUTSIDE AND SMOKE. SHE SAID THAT A DOCTOR CAME INTO HER ROOM THIS AM AND TOLD HER THAT SHE HAD AN ORDER TO GO OUTSIDE TO SMOKE AND THEN SHE SAID THAT A COMMUNITY LEADER AT THE DRS OFFICE HAD TOLD HER THAT BEFORE SHE WAS ADMITTED. MYSELF AND ADAM COMPUTER SYSTEM TECHNICIAN WERE IN THE ROOM TALKING WITH PT TELLING HER THAT SHE IS NOT STABLE TO LEAVE THE UNIT AT THIS TIME. SHE BECAME FURIOUS STATING THAT SHE WANTED TO SPEAK TO RODGER AMBRIZ. RODGER HAPPENED TO BE ON THE UNIT. RODGER WENT IN AND SPOKE TO PT AND TOLD HER THAT SHE CAN NOT LEAVE THE FLOOR DUE TO RISKS AND HEALTH STATUS. PT VERY UPSET. SAYS NICOTINE PATCH IS NOT WORKING FOR HER. RODGER CHANGED NICOTINE PATCH DOSAGE TO 21MG VS THE 14MG. PT VERBALIZES UNDERSTANDING THAT SHE INDEED CAN NOT LEAVE THE FLOOR AND GO OUTSIDE AND SMOKE. PT HAS ORDER FOR UA. I ACCIDENTALY COLLECTED ORDER. WENT IN AND EXPLAINED PROCEDURE TO PT ON HOW TO OBTAIN CLEAN CATCH SPECIMEN. WAITING FOR PT TO FULFILL SPECIMEN. WILL REORDER UA. PT HAS PULLED OUT 3 PIVS 2 SHIFTS. PT CURRENTLY DOES NOT HAVE A PIV. PT IS CURRENTLY EATING LUNCH. TOLD HER TO CALL WHEN SHE IS FINISHED SO I CAN SITE PT FOR PIV. IF I CAN NOT SITE PT RODGER AMBRIZ TOLD ME TO CALL VASCULAR NURSE HERON TO SEE WHAT SHE COULD DO. PT KEEPS PULLING PIVS OUT. SHE SAID A MIDLINE OR PICC MIGHT BE BETTER.
--- NOTE | 2016-06-05 13:07 | NUR ---
COLLECTED CLEAN CATH URINE SENT TO LAB
[2016-06-05 13:43] LABS: APPEARANCE HAZY (CLEAR); COLOR YELLOW (YELLOW); GLUCOSE 50 mg/dL (NEGATIVE); KETONE NEGATIVE (NEGATIVE); LEUKOCYTE ESTERASE NEGATIVE (NEGATIVE); NITRITE NEGATIVE (NEGATIVE); PROTEIN NEGATIVE (NEGATIVE); SPECIFIC GRAVITY 1.025 (1.005-1.020)
[2016-06-05 13:44] LABS: BACTERIA FEW /hpf (NONE SEEN); BILIRUBIN NEGATIVE (NEGATIVE); MUCUS <1+ /lpf (NONE SEEN); RED CELLS - URINE RARE /hpf (0-5); UROBILINOGEN NORMAL (NORMAL); WHITE CELLS - URINE RARE /hpf (0-5); YEAST <1+ /hpf (NONE SEEN)
--- NOTE | 2016-06-05 14:35 | NUR ---
Midline catheter attempted unsuccsessfully. Multiple attempts at peripheral iv. 22 gauge inserted in right hand. Sarah Barcenas RN
--- NOTE | 2016-06-05 14:47 | NUR ---
RESUMED CARE OF PT AT THIS TIME PT LAYING IN BED EYES CLOSED AND APPERS TO BE SLEEPING RESPERATIONS EVEN AND UNLABORED BED LOW AND LOCKED CALL LIGHT IN REACH WILL MONITOR
--- NOTE | 2016-06-05 15:21 | NUR ---
Patient Name: CARYN CHRISTINA Encounter No: [id number] : 1950 Primary Insurance: [facility] Anticipated DC Date: Planned Disposition: Home WITH HOME HEALTH External Planned Provider: [facility] DCP follow-up note: * Is the patient Alert and Oriented? Yes 0 * How many steps to enter\exit or inside your home? RAMP 0 * PCP DR. MOYA 0 * Pharmacy [facility] 0 * Preadmission Environment Home with Family 0 * ADLs Independent 0 * Equipment Glucometer Nebulizer Other Oxygen Walker 0 * Other Equipment HOME OXYGEN CONCENTRATOR ONLY - OWNS IT ELECTRIC WHEELCHAIR [facility] [employer] - MEDICAL EQUIPMENT PROVIDER PREFERENCE 0 * List name and contact numbers for known caregivers / representatives who currently or will assist patient after discharge: MEGHAN STEEN, SON, 0 * Community resources currently utilized Private Duty Care 0 * Please name any agencies selected above. [facility], 6 DAYS PER WEEK, 2 HOURS DAILY 0 * Additional services required to return to the preadmission environment? No 0 * Can the patient safely return to the preadmission environment? Yes 0 * Has this patient been hospitalized within the prior 30 days at any hospital? Yes 0 CM MET WITH PT IN ROOM TO DISCUSS DISCHARGE PLANNING AND NEEDS. PT REPORTS LIVING AT HOME INDEPENDENTLY WITH HER ADULT SON AND DAUGHTER. PT HAS ELECTRIC WHEELCHAIR, HOME OXYGEN CONCENTRATOR (BOUGHT IN [facility]), WALKER AND NEBULIZER. MEDICAL EQUIPMENT PROVIDER IS [employer]. PT HAS PLACEMENT ASSISTANT SERVICES FROM [facility], 6 DAYS PER WEEK, 2 HOURS PER DAY. CM DISCUSSED AVAILABILITY OF HOME HEALTH, REHAB SERVICES AND MEDICAL EQUIPMENT. PT WOULD LIKE [facility] FOR PHYSICAL THERAPY AND NURSING AT DISCHARGE AND HAS USED [employer] IN THE PAST AND WANTS NO OTHER COMPANY. CHOICE SIGNED. PT REPORTS HER SON WILL PICK HER UP FOR DISCHARGE HOME. PT DOES NOT USE MEDICAID TRANSPORT THEY WANT PAYMENT FOR SERVICES. CM CALLED [facility], , SPOKE TO JESSICA WHO TOOK REFERRAL INFORMATION AND REPORTS WILLIS IS FAMILIAR WITH PT AND WILL ACCEPT PT FOR HOME HEALTH WITH PHYSICAN ORDER. CM FAXED REFERRAL TO [facility] AT [phone]. CM TO ARRANGE HOME HEALTH FOR DISCHARGE IF PHYSICIAN AGREES AND PROVIDES HOME HEALTH ORDERS. Max Gordillo, CASE MANAGEMENT
[2016-06-05 15:52] VITALS: BP 96/47
--- NOTE | 2016-06-05 18:21 | NUR ---
TELEMETRY DC'D PER JOHAN L[address] AND POSSIBLE DC HOME IN AM. DR LANE GAVE PT PERMISSION TO LEAVE FLOOR AND SMOKE NO MORE THEN 2 CIGERETTS A DAY AND PT REQUESTED WHEELCHAIR TO GO OUT SIDE AND SMOKE WITH SON, WHEELCHAIR PROVIDED AND IV SALINE LOCKED AFTER CLEOCIN INFUSED AND FLUSHED WITH 10CC NORMAL SALINE. PT REQUESTED PAIN MED AND ADMIN ORDERED WILL MONITOR
[2016-06-05 20:00] VITALS: BP 112/59
[2016-06-06] VITALS: BP 98/53
[2016-06-06 04:00] VITALS: BP 127/73
--- NOTE | 2016-06-06 04:31 | NUR ---
NURSE ROUNDS 19:30 - PT AWAKE, ALERT, ORIENTED, SITTING ON SIDE OF BED USING HER PERSONAL LAPTOP. PT IS C/O OF GENERALIZED PAIN, CHRONIC BACK PAIN, BLE PAIN, ESPECIALLY HER RIGHT LEG. PT STATES SHE TAKES [place] AT HOME Q 4 HOURS REGULARLY AND WOULD LIKE HER PRN ORDER CHANGED TO Q 4 HOURS. DENIES ANY OTHER ACUTE NEEDS. CONTINUE TO MONITOR CLOSELY.
[2016-06-06 05:45] LABS: BASOPHILS 0.3 % (0.0-2.0); EOSINOPHILS 1.5 % (0-7); HEMATOCRIT 43.2 % (36.0-48.0); HEMOGLOBIN 13.7 g/dL (12-16); MCH 31.1 pg (26.0-34.0); MCHC 31.7 g/dL (31.0-37.0); MCV 98.2 fL (80.0-100.0); MEAN PLATELET VOLUME 11.5 fL (7.4-10.4); MONOCYTES 9.1 % (2-11); NEUTROPHILS 73.1 % (40-80); PLATELET COUNT 157 10x3/uL (130-400); RDW 14.3 % (11.5-14.5); WBC 9.6 10x3/uL (4.8-10.8)
--- NOTE | 2016-06-06 05:46 | NUR ---
PT LYING IN BED ON RIGHT SIDE, EYES CLOSED, RESPIRATIONS EVEN AND UNLABORED. CLINDAMYCIN RUNNING IV. CONTINUE TO MONITOR CLOSELY.
[2016-06-06 06:01] LABS: ANION GAP 7.2 mmol/L (8-16); CALCIUM 9.3 mg/dL (8.5-10.1); CARBON DIOXIDE 35.5 mmol/L (21.0-32.0); POTASSIUM - SERUM 3.7 mmol/L (3.5-5.1)
[2016-06-06 08:08] VITALS: BP 136/74
--- NOTE | 2016-06-06 09:40 | CN ---
PATIENT NAME:CARYN XIE MEDICAL RECORD: [id number] : 50 LOCATION:D. D.2104 ADMIT DATE: 06/04/16 ACCOUNT: [id number] CONSULTING PHYSICIAN: OLLIE PHILIP MD REFERRING PHYSICIAN: RENEE MOYA MD DATE OF CONSULTATION: 06/04/2016 Consult Note CONSULT REQUESTING PHYSICIAN: Naeden Lane MD REASON FOR CONSULTATION: Shortness of breath, COPD. HISTORY OF PRESENT ILLNESS: Ms. Xie is a 65-year-old female, who has a history of COPD, home oxygen dependent. According to the patient, shortness of breath with exertion, she does not hear herself wheezing. There is no cough and no sputum production. There is no recent upper respiratory tract infection. She is admitted from Dr. Moya's office for cellulitis of the right lower extremity and swelling. REVIEW OF SYSTEMS: Mainly in the history of present illness. PAST MEDICAL HISTORY: 1. COPD, home oxygen dependent. 2. Obstructive sleep apnea, on CPAP. 3. Congestive heart failure. 4. Type 2 diabetes mellitus. 5. Morbid obesity. 6. Diabetes mellitus type 2. PAST SURGICAL HISTORY: 1. Cholecystectomy. 2. Hysterectomy. 3. Rectal fissure repair. 4. Hernia repair. ALLERGIES: SHE IS ALLERGIC TO ASPIRIN, WELLBUTRIN, FIORINAL, CEPHALEXIN AND CODEINE. HUGE LIST ON Anevia. MEDICATION: On [employer] was reviewed. PERSONAL AND SOCIAL HISTORY: The patient still continues to smoke almost a pack a day. She is a nondrinker. FAMILY HISTORY: Significant for cardiovascular diseases. PHYSICAL EXAMINATION: GENERAL: Now, the patient is sitting in chair. She is not in acute distress. VITAL SIGNS: The blood pressure 125/56, pulse is 50, respiration is 18, temperature 98, SpO2 is 94% on 2 liters nasal cannula. HEENT: Conjunctiva is pink, sclerae not icteric. NECK: Supple, no JVD. CHEST: Chest excursion is minimal on both sides. Bilateral crackles. No wheezing. HEART: Rhythm regular, normal sound, no murmur. CONSULT REPORT [id number] CRAYN XIE ABDOMEN: Soft. Bowel sounds present. No hepatosplenomegaly. RECTAL: Deferred. EXTREMITIES: There is cellulitis of the right lower extremity. CENTRAL NERVOUS SYSTEM: The patient is awake and alert. There is no obvious cranial nerve abnormality. Gait was not tested. IMAGING: Chest radiograph, there is increased interstitial marking. OTHER LABORATORY DATA: CBC: WBC 11.3, hemoglobin 15.1, hematocrit 46.8, the platelet count 137. Chemistry: Creatinine is 1, BUN is 8. IMPRESSION: 1. Chronic obstructive pulmonary disease without exacerbation. 2. Chronic hypoxic respiratory failure. 3. Tobacco dependence syndrome. 4. Congestive heart failure. 5. Obstructive sleep apnea. 6. Cellulitis of the right lower extremity. 7. Morbid obesity. RECOMMENDATIONS: 1. Continue Levaquin and adjust the dose of clindamycin. 2. Albuterol/ipratropium nebulizer. 3. Budesonide and Brovana nebulizer. 4. Supplemental oxygen. 5. BiPAP at night. The patient can use her own. 6. Check the BNP. 7. We will increase the dose of Lasix. Dr. Lane, once again, thanks for involving me in the care of Ms. Xie. TRANSINT:[id number] Voice Confirmation ID: [id number] DOCUMENT ID: [id number] OLLIE PHILIP MD at 0940 CC: NADEEN LANE M.D. [id number] DICTATION DATE: 06/04/16 1641 ATTENDING PSYCHIATRIST: 06/05/[address] [facility] [address] [place] [address]
--- NOTE | 2016-06-06 09:46 | NUR ---
PT C/O IV TO RIGHT WRIST HURTING PT LAYING IN BED WITH TEARS IN EXPRESSION ASKING FOR IV TO BE REMOVED DUE TO PAIN IV DC'D AND PT STATED " IT FEELS SO MUCH BETTER" WILL MONITOR RODGER BARRETO APN OF NO IV
--- NOTE | 2016-06-06 10:51 | NUR ---
PT ASSESSMENT COMPMETED NO DISTRESS OBSERVED EKG COMPLETED AND GIVEN TO RODGER BARRETO APN PT WISHING TO BE DISCHARGED AND RODGER BARRETO NOTIFIED RESPERATIONS EVEN AND UNLBOARED ON 2LNC WILL MONIOTOR
[2016-06-06] MEDS ORDERED: FLORAJEN3 CAPS460 MG PO (11:41)
[2016-06-06] MEDS ORDERED: CORDARONE200 MG PO (11:41)
[2016-06-06] MEDS ORDERED: CLEOCIN HCL300 MG PO (11:47)
[2016-06-06] MEDS ORDERED: LEVAQUIN750 MG PO (11:47)
[2016-06-06 12:27] VITALS: BP 158/89
--- NOTE | 2016-06-06 14:32 | NUR ---
DISCHARGE INSTRUCTIONS REVIEWED AND PT VERBALIZED UNDERSTANDING IV DC'D AND CATH INTACT ASSIST PT DOWN WHEN FAMILY ARRIVES
--- NOTE | 2016-06-06 14:33 | CN ---
PATIENT NAME:CARYN CHRISTINA MEDICAL RECORD: [id number] : 50 LOCATION:D. D.2104 ADMIT DATE: 06/04/16 ACCOUNT: [id number] CONSULTING PHYSICIAN: YEYO TELLEZ MD REFERRING PHYSICIAN: RENEE MOYA MD DATE OF CONSULTATION: 06/05/2016 HISTORY OF PRESENT ILLNESS: A 65-year-old lady with history of morbid obesity, severe obstructive pulmonary disease, admitted with cellulitis. She has a history of recently admitted for COPD. She is on chronic home O2, known preserved LV systolic function last month that was found to be in atrial flutter with variable response. We are asked to see her concerning her cardiovascular status. PAST MEDICAL HISTORY: Includes: 1. History of obstructive sleep apnea. 2. Diastolic dysfunction type cardiomyopathy. 3. Diabetes mellitus. 4. Morbid obesity. ALLERGIES: INCLUDE ASPIRIN, WELLBUTRIN, FIORINAL, CEPHALEXIN, AND CODEINE. SOCIAL HISTORY: Lives in [place]. She smoked almost a pack a day. She does have problems with her ADLs. REVIEW OF SYSTEMS: The patient reports easy bruising but reports no swollen glands. The patient reports no fever, no night sweats, no significant weight gain, no significant weight loss. No significant exercise tolerance. The patient reports no dry eyes, no irritation, no vision change. Patient reports no difficulty hearing and no ear pain. Patient reports no frequent nose bleeds or nose and sinus problems. Patient reports on arm pain on exertion. No shortness of breath while lying down. No history of heart murmur. Patient reports no cough, no wheezing or coughing up blood. Patient reports no abdominal pain, no vomiting. Normal appetite. No diarrhea and not vomiting blood. No nausea and no constipation. Patient reports no incontinence. No difficulty urinating. No hematuria. No increased frequency. Patient reports no muscle aches. No weakness, no arthralgias, no back pain. No swelling of the extremities. Patient reports no abnormal mole, no jaundice, no rashes. Reports no loss of consciousness. No weakness and no numbness. No seizures, dizziness, or headaches. The patient reports no depression, no sleep disturbance, feeling safe in a relationship and no alcohol abuse. Patient reports on fatigue. Reports no runny nose or sinus pressure. No itching, no hives, and no frequent sneezing. MEDICATIONS: Typically include Combivent 2 puffs q.i.d., Celebrex 200 b.i.d., [place] 10/325 q. day, Lasix 40. q. day, insulin per scale. PHYSICAL EXAMINATION: GENERAL: Obese female, in no acute distress. VITAL SIGNS: Blood pressure 109/63, pulse is 67 irregular. HEENT: Normocephalic and atraumatic. NECK: No bruits noted. HEART: Regular heart tones are distant. LUNGS: Poor air excursion. ABDOMEN: Soft and nontender. CONSULT REPORT [id number] CARYN CHRISTINA EXTREMITIES: Pulses are 1+. There is 2+ edema with cellulitis noted; however, this improved by her report. NEUROLOGIC: Grossly intact. IMPRESSION: Atrial flutter. We will add amiodarone for rate control. She is currently on Lovenox. We need to consider addition of no act before discharge ____ rhythm. Further recommendations based on above. TRANSINT:[id number] Voice Confirmation ID: [id number] DOCUMENT ID: [id number] YEYO TELLEZ MD at 1433 CC: [id number] DICTATION DATE: 06/05/16 0854 ROPE CLEANER: 06/05/16 1338 ADM IN [id number] [place] [address]
[2016-06-06] MEDS ORDERED: ELIQUIS5 MG PO (15:43)
--- NOTE | 2016-06-06 16:38 | NUR ---
PT LEFT FLOOR WITH FAMILY AT SIDE AND IN [place] ROUND PROVIDED BY FAMILY DISCHARGE PAPERS IN HAND AND NO DISTRESS OBSERVED
--- NOTE | 2016-06-10 10:43 | DS ---
PATIENT:CARYN CHRISTINA :50 MEDICAL RECORD: [id number] DISCHARGE SUMMARY ADMISSION DATE: 06/04/16 DISCHARGE DATE: 06/06/16 ADMISSION DATE: 06/04/2016 DISCHARGE DATE: 06/06/2016 ADMITTING DIAGNOSES: Cellulitis, right lower extremity, leukocytosis, nicotine dependence with withdrawal, type 2 diabetes mellitus with hyperglycemia, new onset atrial fibrillation, chronic obstructive pulmonary disease, chronic morbid obesity, chronic hypoxic respiratory failure, chronic obstructive sleep apnea. HOSPITAL COURSE: This is a morbidly obese 65-year-old white female admitted from Dr. Abrams's office with diagnoses as outlined above. Details are well-outlined in the history of the present illness, H&P. All events, lab procedures, diagnostic testing are well documented in the records. She was admitted and started on IV antibiotics. Dr. Lema consulted for pulmonary management of a recent pneumonia she had had and his recommendations were followed. He took over management of antibiotics. Initially, she was started on Levaquin and clindamycin added. Dr. Sutherland consulted for new onset AFib. He put her on amiodarone. She was placed on telemetry monitoring. She remained in an uncontrolled AFib, but today is around ____ and Dr. Sutherland is aware of this. He feels she is stable for discharge in that regard and then they will take a couple of weeks for her to convert to sinus rhythm. Her Dopplers of the lower extremities are negative for DVT. She was on DVT prophylaxis with Lovenox, placed on nicotine patch for smoking. Overall, she is stable for dismissal home. Her cellulitis is improving on antibiotics. She is not having any nausea or vomiting. No chest pain, no shortness of breath. She wants to go home. All disciplines are agreeable that she can be followed at home. We will have her follow up with house calls. She will go home on her new amiodarone script as per Dr. Sutherland. She will complete a round of clindamycin and Levaquin. DISCHARGE DIAGNOSES: Cellulitis, right lower extremity, leukocytosis, nicotine dependence with withdrawal, type 2 diabetes mellitus with hyperglycemia, new onset AFib, chronic morbid obesity, chronic hypoxic respiratory failure, chronic obstructive sleep apnea but they also include chronic obstructive pulmonary disease without exacerbation, congestive heart failure, [id number] systolic. Please note that in regards to her JOSÉ LUIS, Dr. Lema recommended her using her own BiPAP while here. Greater than 30 minutes was spent on this discharge. TRANSINT:[id number] Voice Confirmation ID: [id number] DOCUMENT ID: [id number] Dictated By: RODGER MENSAH RN I have interviewed/examined the above patient and agree with these documented findings. DISCHARGE SUMMARY REPORT [id number] CARYN CHRISTINA KEVIN M.D. at 1043 at 1621 CC: [id number] DICTATION DATE: 06/06/16 1355 BRAND MARKETING MANAGER: 06/07/16 0031 DIS IN 06/06/16 [id number] [place] [address]
== END 2016-06-06 16:39 | disposition home health service (06) | DRG 602 ==
LOC: D.M2 16:54 → OBSVTIME 18:00 → D.M2 06-04 15:45
PROVIDERS: Family Medicine; ADMIT Family Medicine
DX: L03.115 Cellulitis of right lower limb (principal); I50.23 Acute on chronic systolic (congestive) heart failure; J96.11 Chronic respiratory failure with hypoxia; I48.92 Unspecified atrial flutter; F17.203 Nicotine dependence unspecified, with withdrawal; Z68.43 Body mass index [BMI] 50.0-59.9, adult; J44.9 Chronic obstructive pulmonary disease, unspecified; G47.33 Obstructive sleep apnea (adult) (pediatric); E66.01 Morbid (severe) obesity due to excess calories; E11.65 Type 2 diabetes mellitus with hyperglycemia; I48.91 Unspecified atrial fibrillation

== ENCOUNTER 2016-06-14 14:56 | Emergency (ER) | payer MEDICARE, MEDICAID ==
[2016-06-04 12:52] VITALS: BMI 51.7
[~2016-06-14 14:56] MED LIST changes: +CLEOCIN HCL300 MG PO; +CORDARONE200 MG PO; +ELIQUIS5 MG PO; +FLORAJEN3 CAPS460 MG PO; +LANTUS INSULIN10 ML SQ
[2016-06-14 16:01] LABS: BASOPHILS 0.3 % (0.0-2.0); EOSINOPHILS 1.1 % (0-7); HEMATOCRIT 45.6 % (36.0-48.0); HEMOGLOBIN 14.7 g/dL (12-16); IMMATURE GRANULOCYTES 0.7 % (0-5); LYMPHOCYTES 12.7 % (15-50); MCH 31.3 pg (26.0-34.0); MCHC 32.2 g/dL (31.0-37.0); MEAN PLATELET VOLUME 10.9 fL (7.4-10.4); MONOCYTES 7.5 % (2-11); NEUTROPHILS 77.7 % (40-80); RDW 14.5 % (11.5-14.5); WBC 9.6 10x3/uL (4.8-10.8)
[2016-06-14 16:04] LABS: PLATELET COUNT 217 10x3/uL (130-400)
[2016-06-14 16:24] LABS: ALBUMIN 3.5 g/dL (3.4-5.0); ALKALINE PHOSPHATASE 70 U/L (46-116); ALT (SGPT) 21 U/L (10-68); BILIRUBIN - TOTAL 0.58 mg/dL (0.2-1.3); CALC OSMOLALITY 293 mosm/kg (275-300); CALCIUM 8.7 mg/dL (8.5-10.1); CARBON DIOXIDE 33.4 mmol/L (21.0-32.0); CHLORIDE - SERUM 101 mmol/L (98-107); POTASSIUM - SERUM 4.2 mmol/L (3.5-5.1); SODIUM 141 mmol/L (136-145); UREA NITROGEN 9 mg/dL (7-18); eGFR NON AFRICAN AMERICAN 59 mL/min (90-120)
[2016-06-14 16:25] LABS: GLUCOSE 351 mg/dL (74-106)
[2016-06-14 16:34] LABS: CHOL - HDL RATIO 3.8 ratio (2.3-4.1); CHOLESTEROL, TOTAL 176 mg/dL (0-200); CKMB 0.8 U/L (0.0-3.6); CREATINE KINASE 43 UL (21-215); HDL CHOLESTEROL 46 mg/dL (32-96); LDL CHOLESTEROL 88 mg/dL (0-100); LDL-HDL RATIO 1.9 ratio (1.5-3.5); TRIGLYCERIDE 214 mg/dL (30-200); TROPONIN-I < 0.017 ng/mL (0.000-0.060)
== END 2016-06-14 17:24 | disposition home or self-care (01) ==
LOC: D.ER 14:56
PROVIDERS: Emergency Medicine
DX: R60.9 Edema, unspecified (principal); I48.92 Unspecified atrial flutter; I50.9 Heart failure, unspecified; E11.9 Type 2 diabetes mellitus without complications; Z79.4 Long term (current) use of insulin; J44.9 Chronic obstructive pulmonary disease, unspecified; F17.200 Nicotine dependence, unspecified, uncomplicated; I44.30 Unspecified atrioventricular block

== ENCOUNTER 2016-08-27 17:51 | Observation (INO) | payer MEDICARE, MEDICAID ==
[2016-06-04 12:52] VITALS: BMI 51.7
[2016-08-27 19:44] LABS: BASOPHILS 0.2 % (0-2); HEMATOCRIT 50.2 % (36.0-48.0); HEMOGLOBIN 16.5 g/dL (12-16); IMMATURE GRANULOCYTES 2.5 % (0-5); LYMPHOCYTES 13.9 % (15-50); MCHC 32.9 g/dL (31.0-37.0); MCV 94.4 fL (80.0-100.0); MEAN PLATELET VOLUME 10.8 fL (7.4-10.4); NEUTROPHILS 73.4 % (40-80); PLATELET COUNT 169 10x3/uL (130-400); RBC 5.32 10x6/uL (4.00-5.40); RDW 14.6 % (11.5-14.5); WBC 20.1 10x3/uL (4.8-10.8)
[2016-08-27 20:04] LABS: ALBUMIN 3.4 g/dL (3.4-5.0); ANION GAP 8.9 mmol/L (8-16); BILIRUBIN - TOTAL 0.52 mg/dL (0.2-1.3); CALCIUM 9.1 mg/dL (8.5-10.1); CARBON DIOXIDE 33.7 mmol/L (21.0-32.0); CREATININE - SERUM 0.9 mg/dL (0.6-1.3); POTASSIUM - SERUM 3.6 mmol/L (3.5-5.1); PROTEIN - SERUM 6.8 g/dL (6.4-8.2)
== END 2016-08-27 20:20 | disposition left against medical advice (07) ==
LOC: D.M2 17:51 → OBSVTIME 17:51 → D.M2 20:20
PROVIDERS: ADMIT Family Medicine
DX: I11.0 Hypertensive heart disease with heart failure (principal); I50.9 Heart failure, unspecified; E11.9 Type 2 diabetes mellitus without complications; J44.9 Chronic obstructive pulmonary disease, unspecified